=== PATIENT | female | born 1975 | race Caucasian/White ===

== ENCOUNTER → 2020-10-23 | Day surgery (SDC) | payer OTHER ==
[~2020-10-23] VITALS: Ht 157.5 cm; Wt 81.6 kg
[~2020-10-23] MED LIST: NEURONTIN300 MG PO; PERCOCET 5-3251 EACH PO; SYNTHROID100 MCG PO; TYLENOL500 MG PO; VIT B PO; WARFARIN SODIU7.5 MG PO; WARFARIN SODIUM5 MG PO
[2020-10-23 11:11] LABS: HCT 43.6 % (37.0-47.0); HGB 14.4 g/dl (12.5-16.0); MCV 90.8 fL (78.0-100.0); MPV 10.5 fL (6.0-9.5); RBC 4.8 M/uL (4.20-5.40); RDW 13.3 % (11.5-14.0); WBC 8.7 K/uL (4.0-10.5)
[2020-10-23 11:18] LABS: PTT 31.8 SECONDS (22.2-34.7)
[2020-10-23 11:20] LABS: INR 1.27 (0.9-1.2); PROTHROMBIN TIME 15.1 SECONDS (11.4-13.6)
[2020-10-23 11:25] LABS: ALBUMIN 3.7 g/dL (3.4-5.0); BILIRUBIN - TOTAL 0.5 mg/dL (0.2-1.0); BUN/CREAT RATIO (CALC) 21.9 RATIO; CREATININE 0.73 mg/dL (0.51-0.95); GLOBULIN (CALCULATION) 3.6 g/dL; POTASSIUM 4.2 mmol/L (3.5-5.1); TOTAL PROTEIN 7.3 g/dL (6.4-8.2)
== END | disposition home or self-care (01) ==
LOC: FAS 10:03
PROVIDERS: Orthopaedic Surgery
DX: S83.242A Other tear of medial meniscus, current injury, left knee, initial encounter (principal); M17.12 Unilateral primary osteoarthritis, left knee; M25.462 Effusion, left knee; M71.22 Synovial cyst of popliteal space [Baker], left knee; M79.4 Hypertrophy of (infrapatellar) fat pad; M25.862 Other specified joint disorders, left knee; X58.XXXA Exposure to other specified factors, initial encounter; R00.1 Bradycardia, unspecified
CPT/HCPCS: 36415; 80053; 85610; 85730; 93005; J1100; J2250; J2405; J2704; J3010; J7120